=== PATIENT | male | born 1970 | race Caucasian/White ===

== ENCOUNTER 2019-05-08 16:28 | Emergency (ER) | payer SELFPAY ==
[~2019-05-08] VITALS: Ht 180.3 cm; Wt 66.7 kg
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
--- NOTE | 2019-05-08 17:24 | NUR ---
patient awaiting xrays. friends at bedside. refusing to sit in bed, but patient good on feet, he is wakling around room.
--- NOTE | 2019-05-08 17:49 | NUR ---
dr nunez spoke with dr huffman
[2019-05-08 17:53] VITALS: BP 120/81
[2019-05-08] MEDS ORDERED: HYDROcodone/APAP 10/325 MG TABLET ONE (18:16)
--- NOTE | 2019-05-08 18:18 | NUR ---
PATIENT'S PAIN A 8 OF 10 WITH MOTION, MD ALERTED TO MEDICATE PATIENT PRIOR TO DEPARTURE. HE HAS PARENTS DRIVING AND INSTRUCTED NO DRIVING. HE IS AOX4. HE IS SCHEDULED FOLLOW UP ORTHO AND POSSIBLE SURGERY. PATIENT DISHARGE TEACHING REVIEWED.
[2019-05-08] MEDS ORDERED: HYDROcodone/APAP 10/325 MG TABLET PO ONE (18:30)
== END 2019-05-08 18:34 | disposition home or self-care (01) ==
LOC: ED 18:28
DX: S42.022A Displaced fracture of shaft of left clavicle, initial encounter for closed fracture (principal); F17.200 Nicotine dependence, unspecified, uncomplicated; V00.831A Fall from motorized mobility scooter, initial encounter; Y93.89 Activity, other specified; Y92.488 Other paved roadways as the place of occurrence of the external cause; Y99.8 Other external cause status
CPT/HCPCS: 99283